=== PATIENT | male | born 1935 | race Caucasian/White ===

== ENCOUNTER 2018-02-22 12:39 | Emergency (ER) | payer MEDICARE, MEDICAID ==
[~2018-02-22] VITALS: Ht 185.4 cm; Wt 77.3 kg
[~2018-02-22 12:39] MED LIST: ALBU8HFA PO; ALFU10TA10 PO; APIX5TAB3 PO; ATOR10TA87 PO; CETI-194 PO; DIPH50CA3 PO; FAMO20TA8 PO; FLAX100025 PO; FURO20TA4 PO; HYDR-3972 PO; SPIIN INH; TEST200V10 IM
[2018-02-22] MEDS ORDERED: LIDOcaine 2% 10ml TOPICAL JELLY (Urojet) MM ONE (16:40)
[2018-02-22 16:55] LABS: CLARITY,URINE CLEAR (Clear); COLOR,URINE YELLOW (Yellow); GLUCOSE, URINE NEGATIVE (Neg); KETONES,URINE NEGATIVE (Neg); LEUKOCYTE ESTERASE ,URINE TRACE (Neg); NITRITES, URINE NEGATIVE (Neg); OCCULT BLOOD,URINE LARGE (Neg); PROTEIN,URINE NEGATIVE (Neg); UROBILINOGEN,URINE 0.2 E.U/dL (0.2-1.0)
[2018-02-22 17:03] LABS: UA COLLECTION TYPE CLN CATCH MIDSTREAM
[2018-02-22 17:04] LABS: BACTERIA,URINE NONE SEEN /HPF (Neg); MUCUS STRANDS NONE SEEN /LPF (Neg); SQUAMOUS EPITHELIAL CELL,UR FEW /LPF (FEW); WBC,URINE 0-4 /HPF (0-4)
[2018-02-22] MEDS ORDERED: FLO0.4C PO (17:47)
[2018-02-22 18:06] VITALS: BP 124/80
== END 2018-02-22 18:00 | disposition home or self-care (01) ==
LOC: ER 12:40
DX: R33.9 Retention of urine, unspecified (principal); R10.30 Lower abdominal pain, unspecified; I49.9 Cardiac arrhythmia, unspecified; J44.9 Chronic obstructive pulmonary disease, unspecified; F17.210 Nicotine dependence, cigarettes, uncomplicated; Z87.442 Personal history of urinary calculi; Z85.89 Personal history of malignant neoplasm of other organs and systems; Z98.61 Coronary angioplasty status; Z98.890 Other specified postprocedural states; Z88.2 Allergy status to sulfonamides; Z88.8 Allergy status to other drugs, medicaments and biological substances; Z88.5 Allergy status to narcotic agent; Z79.899 Other long term (current) drug therapy
CPT/HCPCS: 51702; 81001; 87088; 99285; A4315; 99284

== ENCOUNTER 2018-05-24 06:40 | Day surgery (SDC) | payer MEDICARE, MEDICAID ==
[2018-05-22 15:10] LABS: EOSINOPHILS # (AUTO) 0.1 X10'3 (0-0.9); EOSINOPHILS % (AUTO) 2.4 % (0-6); LYMPHOCYTES # (AUTO) 1.1 X10'3 (1.1-4.8); LYMPHOCYTES % (AUTO) 32.2 % (21-51); MEAN CORPUSCULAR HEMOGLOBIN 33.6 PG (27.0-31.0); MEAN CORPUSCULAR HGB CONC 33.4 % (33.0-36.5); MEAN CORPUSCULAR VOLUME 100.4 FL (78-98); MEAN PLATELET VOLUME 11.4 FL (7.4-10.4); MONOCYTES # (AUTO) 0.3 X10'3 (0-0.9); MONOCYTES % (AUTO) 9.5 % (2-12); NEUTROPHILS % (AUTO) 54.9 % (42-75); PRE OP HEMATOCRIT 38.5 % (42.0-52.0); PRE OP HEMOGLOBIN 12.9 g/dL (14.0-17.9); PRE OP PLATELET COUNT 123 X10'3 (140-440); RED BLOOD COUNT 3.84 X10'6 (4.70-6.10); RED CELL DISTRIBUTION WIDTH 15.7 % (11.5-14.5)
[2018-05-22 15:17] LABS: ALBUMIN 3.5 G/DL (3.4-5.0); ALBUMIN/GLOBULIN RATIO 0.9 (1.1-1.5); ALKALINE PHOSPHATASE 117 IU/L (46-116); BLOOD UREA NITROGEN 29 MG/DL (7-18); BUN/CREATININE RATIO 25.2 (5.4-32.0); CALCIUM 9.3 MG/DL (8.5-10.1); CHLORIDE 104 MMOL/L (99-107); CREATININE 1.15 MG/DL (0.60-1.10); PRE OP ALT 23 U/L (30-65); PRE OP ANION GAP 4 (8-16); PRE OP AST 17 U/L (10-37); PRE OP BILIRUB, TOTAL 0.4 MG/DL (0.0-1.0); PRE OP GLUCOSE 118 MG/DL (70-104); PRE OP POTASSIUM 4.3 MMOL/L (3.4-5.1); PRE OP SODIUM 142 MMOL/L (135-145); TOTAL CARBON DIOXIDE 33.6 MMOL/L (24-32); TOTAL PROTEIN 7.6 G/DL (6.4-8.2); eGFR 61 ML/MIN
[2018-05-22 15:25] LABS: PRE OP PROTIME 9.9 SECONDS (9.0-12.0)
[2018-05-24] VITALS (18 sets, daily range): BP systolic 101–156; BP diastolic 53–74
[~2018-05-24] VITALS: Ht 185.4 cm; Wt 71.0 kg
[~2018-05-24 06:40] MED LIST changes: -ALFU10TA10 PO; -APIX5TAB3 PO; -ATOR10TA87 PO; +BISA10SU8 RC; -CETI-194 PO; -DIPH50CA3 PO; -FAMO20TA8 PO; +FINA5TAB11 PO; -FLAX100025 PO; +FLAX100031 PO; +FLO0.4C PO; +FLUC100T8 PO; -FURO20TA4 PO; -HYDR-3972 PO; +MORP30CA16 PO; -SPIIN INH; -TEST200V10 IM; +[UNRECOGNIZED DRUG - CODE] PO; +albuterol 2.5 MG/3 ML nebule NEB ONE; +ceFAZolin 1GM/D5W- ADD-VANTAGE 50 ML IV ONE; +famotidine 20mg tablet PO ONE
[2018-05-24] MEDS: ringers solution, lacted 1,000 ML IV SCH ×2 (07:31→15:48)
[2018-05-24] MEDS ORDERED: LIDOcaine 1% (10mg/ml) 2ml vial ONE (08:06)
[2018-05-24] MEDS ORDERED: BUPIVAcaine/dex-water/PF 7.5 mg/ml 2ml ampul ONE (08:39)
[2018-05-24] MEDS ORDERED: fentaNYL/PF 50MCG/1 ML 2ML syringe ONE (08:41)
[2018-05-24] MEDS ORDERED: midazolam 2 mg/2 ml injection ONE ×2 (08:41→10:16)
[2018-05-24] MEDS ORDERED: diphenhydrAMINE 50 mg/ml inj ONE (08:45)
[2018-05-24] MEDS ORDERED: neomy sulf/polymyxin B sulf. GU irrigation 1ml amp IR ONE (08:52)
[2018-05-24] MEDS ORDERED: gentamicin 40 MG/1 ML inj ONE (09:18)
[2018-05-24] MEDS ORDERED: propofol inj 20 ML IV ONE (10:17)
[2018-05-24] MEDS ORDERED: ePHEDrine 50MG/ML INJ. ONE (10:17)
[2018-05-24] MEDS ORDERED: mag hydrox/Alum hydrox/simeth 30ml oral suspension PO PRN (10:30)
[2018-05-24] MEDS ORDERED: acetaminophen 325mg tablet PO PRN (10:30)
[2018-05-24] MEDS ORDERED: HYDROcodone/acetaminophen 10/325mg tab PO PRN (10:30)
[2018-05-24] MEDS ORDERED: zolpidem 5mg tablet PO PRN (10:30)
[2018-05-24] MEDS ORDERED: proCHLORperazine 10 MG/2 ml inj IV PRN (10:30)
[2018-05-24] MEDS ORDERED: ondansetron/PF 4mg/2ml inj IV PRN ×2 (10:30→11:40)
[2018-05-24] MEDS ORDERED: albuterol 2.5 MG/3 ML nebule NEB PRN (10:55)
[2018-05-24] MEDS ORDERED: guaiFENesin 200 MG/10 ML oral syrup UD cup PO PRN (10:55)
[2018-05-24] MEDS ORDERED: ringers solution, lacted 1,000 ML IV SCH (11:40)
[2018-05-24] MEDS ORDERED: HYDROmorphone inj. 0.5 MG/0.5 ML DISP.SYRIN IV PRN (11:40)
[2018-05-24] MEDS ORDERED: morphine 4 MG/ML inj SYRINge IV PRN (11:40)
[2018-05-24] MEDS: morphine IR (immed. release) 30mg tablet PO PRN (12:04)
[2018-05-24] MEDS: oxybutynin 5mg tablet PO PRN ×2 (13:39→21:47)
[2018-05-24] MEDS: potassium cl 20mEq in 1/2 NS 1,000 ML IV SCH ×2 (15:50→18:29)
[2018-05-24] MEDS: ceFAZolin inj. 1,000 MG in dextrose 5%-water 50ml 50 ML IV SCH (15:51)
[2018-05-24] MEDS ORDERED: morphine ER 30mg tablet PO SCH (20:00)
[2018-05-24] MEDS: tamsulosin 0.4mg capsule PO SCH (20:38)
[2018-05-24] MEDS: docusate sod 100mg capsule PO SCH (20:38)
[2018-05-25] VITALS: BP 109/55
[2018-05-25] MEDS: potassium cl 20mEq in 1/2 NS 1,000 ML IV SCH ×2 (00:17→09:41)
[2018-05-25] MEDS: ceFAZolin inj. 1,000 MG in dextrose 5%-water 50ml 50 ML IV SCH ×2 (00:17→08:37)
[2018-05-25] MEDS: morphine IR (immed. release) 30mg tablet PO PRN (00:25)
[2018-05-25 04:00] VITALS: BP 104/51
[2018-05-25 06:23] LABS: BASOPHILS % (AUTO) 0.5 % (0-1); EOSINOPHILS # (AUTO) 0.1 X10'3 (0-0.9); EOSINOPHILS % (AUTO) 2.1 % (0-6); HEMOGLOBIN 10.2 g/dl (14.0-17.9); LYMPHOCYTES # (AUTO) 1.1 X10'3 (1.1-4.8); LYMPHOCYTES % (AUTO) 18.5 % (21-51); MEAN CORPUSCULAR HEMOGLOBIN 34.1 PG (27.0-31.0); MEAN CORPUSCULAR VOLUME 100.3 FL (78-98); MEAN PLATELET VOLUME 10.1 FL (7.4-10.4); MONOCYTES # (AUTO) 0.5 X10'3 (0-0.9); MONOCYTES % (AUTO) 8.4 % (2-12); NEUTROPHILS # (AUTO) 4.3 X10'3 (1.8-7.7); NEUTROPHILS % (AUTO) 70.5 % (42-75); PLATELET COUNT 101 X10'3 (140-440); RED BLOOD COUNT 2.99 X10'6 (4.70-6.10)
[2018-05-25 06:39] LABS: ALBUMIN 2.6 G/DL (3.4-5.0); ANION GAP 8 (8-16); BLOOD UREA NITROGEN 30 MG/DL (7-18); CALCIUM 8.1 MG/DL (8.5-10.1); CHLORIDE 105 MMOL/L (99-107); CREATININE 1.43 MG/DL (0.60-1.10); GLUCOSE 101 MG/DL (70-104); POTASSIUM 4.9 MMOL/L (3.5-5.1); SODIUM 137 MMOL/L (135-145); TOTAL CARBON DIOXIDE 23.9 MMOL/L (24-32); eGFR 47 ML/MIN
[2018-05-25 07:00] VITALS: BP 90/37
[2018-05-25] MEDS ORDERED: pantoprazole 40mg Tablet.DR PO SCH (07:30)
[2018-05-25 08:00] VITALS: BP 101/70
[2018-05-25] MEDS ORDERED: finasteride 5mg tablet PO SCH (08:00)
[2018-05-25] MEDS ORDERED: fluconazole 100mg tablet PO SCH (08:00)
[2018-05-25] MEDS: tamsulosin 0.4mg capsule PO SCH (08:37)
[2018-05-25] MEDS: docusate sod 100mg capsule PO SCH (08:37)
[2018-05-25] MEDS ORDERED: DOCU-28 PO (10:12)
[2018-05-25 11:00] VITALS: BP 100/53
== END 2018-05-25 13:13 | disposition home or self-care (01) ==
LOC: PAS 06:40 → SUR 3N 11:42 → PAS 05-25 13:13
PROVIDERS: ATTEND Urology
DX: N40.1 Benign prostatic hyperplasia with lower urinary tract symptoms (principal); J44.9 Chronic obstructive pulmonary disease, unspecified; J45.909 Unspecified asthma, uncomplicated; J40 Bronchitis, not specified as acute or chronic; F32.9 Major depressive disorder, single episode, unspecified; M19.90 Unspecified osteoarthritis, unspecified site; G47.30 Sleep apnea, unspecified; Z88.6 Allergy status to analgesic agent; Z88.1 Allergy status to other antibiotic agents; Z88.2 Allergy status to sulfonamides; Z88.7 Allergy status to serum and vaccine; Z88.8 Allergy status to other drugs, medicaments and biological substances; Z85.118 Personal history of other malignant neoplasm of bronchus and lung; Z87.891 Personal history of nicotine dependence; G89.29 Other chronic pain; Z98.890 Other specified postprocedural states
CPT/HCPCS: 36415; 52601; 71046; 80048; 80053; 85025; 85610; 85730; 86885; 86900; 86901; A4346; A4615; A6255; J0690; J1200; J1580; J2250; J2704; J3010; J3490; J7030; J7060; 88305; A4402; J7120